=== PATIENT | female | born 1980 | race Caucasian/White ===

== ENCOUNTER 2023-05-15 23:40 | Emergency (ER) | payer SELFPAY ==
[~2023-05-15] VITALS: Ht 162.6 cm; Wt 90.7 kg
[2023-05-16 00:06] VITALS: BP 144/82; PULSE 88; RESP 20; TEMP 97.5; O2SAT 100
[2023-05-16] MEDS ORDERED: DICYCLOMINE HCL LIQUID 20 MG, ALUMINUM HYD/MAG/SIMETHICONE 30 ML, LIDOCAINE VISCOUS 2% ... PO ONE ×3 (00:50)
[2023-05-16] MEDS ORDERED: DICYCLOMINE HCL LIQUID 10 MG/5 ML UDC ONE (00:55)
[2023-05-16] MEDS ORDERED: ALUMINUM HYD/MAG/SIMETHICONE 30 ML UDC ONE (00:55)
[2023-05-16] MEDS ORDERED: LORazepam 0.5 MG TAB PO ONE (01:10)
[2023-05-16 01:23] LABS: APPEARANCE,URINE CLEAR (CLEAR); BILIRUBIN,URINE NEGATIVE (NEGATIVE); BLOOD, URINE TRACE-I (NEGATIVE); COLOR,URINE YELLOW (YELLOW); LEUKOCYTE ESTERASE ,URINE 1+ (NEGATIVE); NITRITE, URINE NEGATIVE (NEGATIVE); PROTEIN,URINE TRACE (NEGATIVE); UGLUCOSE NEGATIVE (NEGATIVE)
[2023-05-16 01:49] LABS: BACTERIA,URINE 3+ /HPF (None Seen); RBC,URINE 0-5 /HPF (0-5); SQUAMOUS EPITHELIAL CELL,UR >10 (MANY) /LPF (0-3 (FEW))
[2023-05-16] MEDS ORDERED: cephALEXin 500 MG CAP PO ONE (02:25)
[2023-05-16 02:48] LABS: BASOPHILS % (AUTO) 0.4 % (0.0-2.0); EOSINOPHILS # (AUTO) 0.2 K/uL (0-0.4); HEMATOCRIT 30.5 % (36-48); HEMOGLOBIN 9.8 g/dL (12.0-16.0); LYMPHOCYTES # (AUTO) 1.6 K/uL (2.5-16.5); LYMPHOCYTES % (AUTO) 18.3 % (20.5-51.1); MEAN CORPUSCULAR HEMOGLOBIN 25 pg (27-31); MEAN CORPUSCULAR HGB CONC 32 g/dL (33-37); MEAN CORPUSCULAR VOLUME 76.5 fL (80-94); MONOCYTES # (AUTO) 0.9 K/uL (0.8-1.0); MONOCYTES % (AUTO) 10.5 % (1.7-9.3); NEUTROPHILS # (AUTO) 6.1 K/uL (1.8-7.7); NEUTROPHILS % (AUTO) 68.8 % (42.2-75.2); PLATELET COUNT (AUTO) 279 K/uL (140-450); RED BLOOD CELL COUNT(AUTO) 3.99 MIL/uL (4.20-5.40); RED CELL DISTRIBUTION WIDTH 23.6 % (11.6-13.7); WHITE BLOOD COUNT (AUTO) 8.8 K/uL (4.8-10.8)
[2023-05-16 03:21] LABS: ALBUMIN 3.1 g/dL (3.4-5.0); ANION GAP 12.4 (8-16); CALCIUM 8.6 mg/dL (8.5-10.1); CARBON DIOXIDE 28.2 mmol/L (21-32); CREATININE 0.8 mg/dL (0.6-1.3); POTASSIUM 3.6 mmol/L (3.5-5.1); TOTAL BILIRUBIN 0.7 mg/dL (0.0-1.0); TOTAL PROTEIN, SERUM 6.8 g/dL (6.4-8.2)
[2023-05-16 03:29] LABS: FREE T4 (FREE THYROXINE) 0.96 ng/dL (0.76-1.46); LIPASE 36 U/L (16-77); THYROID STIMULATING HORMONE 1.85 uIU/mL (0.34-3.74)
[2023-05-16] MEDS ORDERED: FAMO-90 PO (04:35)
[2023-05-16] MEDS ORDERED: SIME80TA41 PO (04:35)
[2023-05-16] MEDS ORDERED: CEPH-588 PO (04:38)
[2023-05-16] MEDS ORDERED: FURO-572 PO (04:42)
[2023-05-16 04:47] VITALS: BP 144/82; PULSE 88; RESP 20; TEMP 97.5; O2SAT 100
[2023-05-16 04:47] LABS: ANISOCYTOSIS 2+
[2023-05-16 04:48] LABS: HYPOCHROMASIA 1+; OVALOCYTES 1+; POIKILOCYTOSIS 2+; STOMATOCYTES 2+; TEAR DROP CELLS 1+
== END 2023-05-16 04:47 | disposition home or self-care (01) ==
LOC: MED 23:40
DX: N39.0 Urinary tract infection, site not specified (principal); R60.0 Localized edema; F43.9 Reaction to severe stress, unspecified; R14.0 Abdominal distension (gaseous); D64.9 Anemia, unspecified; F41.9 Anxiety disorder, unspecified; I10 Essential (primary) hypertension; Z79.899 Other long term (current) drug therapy
CPT/HCPCS: 36415; 80053; 81001; 81025; 83690; 83880; 84439; 84443; 84484; 85025; 87086; 99283; 99284